=== PATIENT | female | born 1960 | race Caucasian/White ===

== ENCOUNTER 2021-08-08 01:00 | Outpatient (CLI) | payer OTHER | END 2021-08-08 01:01 | disposition home or self-care (01) | LOC: CSHMRI 01:00 | PROVIDERS: ATTEND Nurse Practitioner Family | DX: M54.16 Radiculopathy, lumbar region (principal); R93.7 Abnormal findings on diagnostic imaging of other parts of musculoskeletal system | CPT/HCPCS: 72149; 82565 ==

== ENCOUNTER 2022-12-20 14:25 | Outpatient (CLI) | payer OTHER | END 2022-12-20 14:26 | disposition home or self-care (01) | LOC: CSHCT 14:25 | PROVIDERS: ATTEND Orthopaedic Surgery | DX: S42.255A Nondisplaced fracture of greater tuberosity of left humerus, initial encounter for closed fracture (principal); S42.142A Displaced fracture of glenoid cavity of scapula, left shoulder, initial encounter for closed fracture ==